=== PATIENT | male | born 1990 | race Two or more races ===

== ENCOUNTER 2024-05-25 14:31 | Emergency (ER) | payer SELFPAY ==
[~2024-05-25] VITALS: Ht 177.8 cm; Wt 100.0 kg
[2024-05-25 14:36] VITALS: BP 149/94; PULSE 65; RESP 18; TEMP 97.4; O2SAT 99
[2024-05-25] MEDS ORDERED: CEPH-585 PO (14:58)
[2024-05-25] MEDS ORDERED: METF-436 PO (14:58)
== END 2024-05-25 15:18 | disposition home or self-care (01) ==
LOC: ER 14:32
DX: Z76.0 Encounter for issue of repeat prescription (principal); Z88.8 Allergy status to other drugs, medicaments and biological substances; Z79.899 Other long term (current) drug therapy; Z79.2 Long term (current) use of antibiotics
CPT/HCPCS: 99281